=== PATIENT | male | born 1960 | race Caucasian/White ===

== ENCOUNTER 2016-11-26 19:23 | Emergency (ER) | payer OTHER ==
[~2016-11-26] VITALS: Ht 193 cm; Wt 128.2 kg
[2016-11-26 19:26] VITALS: TEMP 98.4
[2016-11-26] MEDS ORDERED: AMOXICILLIN 8751 TAB PO (20:21)
[2016-11-26 20:41] VITALS: BP 145/93; PULSE 94
[2016-11-26] MEDS ORDERED: RT SPIRIVA18 MCG IH (20:43)
[2016-11-26] MEDS ORDERED: PROAIR HFA0.09 MG/AC IH (20:44)
[2016-11-26] MEDS ORDERED: ROBAXIN 50500 MG/TAB PO (20:44)
[2016-11-26] MEDS ORDERED: MOTRIN 600600 MG/TAB PO (20:44)
[2016-11-26] MEDS ORDERED: DYAZIDE 25 MG-31 CAP PO (20:45)
== END 2016-11-26 20:45 | disposition home or self-care (01) ==
LOC: COL.ER 19:23
DX: J01.90 Acute sinusitis, unspecified (principal); J44.9 Chronic obstructive pulmonary disease, unspecified; I10 Essential (primary) hypertension; F17.210 Nicotine dependence, cigarettes, uncomplicated; Z87.09 Personal history of other diseases of the respiratory system; Z99.81 Dependence on supplemental oxygen

== ENCOUNTER 2023-05-16 00:30 | Observation (INO) | payer OTHER ==
[~2023-05-16] VITALS: Ht 10.2 cm; Wt 114.4 kg
[~2023-05-16 00:30] MED LIST: 00186-0370-20 IH; AMBIEN 10MG10 MG PO; AMOXICILLIN 8751 TAB PO; B-121000 MCG PO; BREZTRI AEROS10.7 GM IH; DYAZIDE 25 MG-31 CAP PO; FLONASE NASAL S16 GM NS; K-DUR20 MEQ PO; MEVACOR 20M20 MG/TAB PO; MOTRIN 200200 MG/TAB PO; PRILOSEC 20MG20 MG PO; PROAIR HFA0.09 MG/AC IH; PROMACTA50 MG PO; ROBAXIN 50500 MG/TAB PO; RT ADVAIR 228 DISKUS IH; RT SPIRIVA18 MCG IH; SINEMET 25/101 UDTAB PO; SINGULAIR 110 MG/TAB PO; TEMOVATE0.05% TP; VIAGRA50 M1 PO; VITAMIN C500 MG PO; VITAMIN D250 MCG PO; ZYRTEC 10MG10 MG PO
[2023-05-16 00:50] LABS: BASO % 0.3 % (0.0-2.0); EOS # 0.1 K/mm3 (0.0-0.7); EOS % 0.7 % (0.0-4.0); GRAN # 6.2 K/mm3 (1.4-6.5); GRAN % 85.9 % (42.2-75.2); HEMATOCRIT 38.7 % (42.0-52.0); LYMPH # 0.4 K/mm3 (1.2-3.4); LYMPH % 5.3 % (20.0-51.0); MEAN CELL VOLUME 85 fl (80.0-100.0); MEAN CORPUSCULAR HEMOGLOBIN 29 pg (27-31); MEAN CORPUSCULAR HGB CONC 34 g/dl (33.0-37.0); MEAN PLATELET VOLUME 10.7 fl (7.4-10.4); MONO # 0.5 K/mm3 (0.1-0.6); MONO % 7.5 % (1.7-9.3); PLATELET COUNT 194 K/mm3 (130-400); RED BLOOD COUNT 4.54 M/mm3 (4.20-5.60); REDCELL DISTRIBUTION WIDTH-CV 14.9 % (11.5-14.5)
[2023-05-16 01:08] LABS: ALANINE AMINOTRANSFERASE 6 U/L (0-55); ALBUMIN 3.4 gm/dL (3.4-4.8); ALKALINE PHOSPHATASE 78 U/L (40-150); ANION GAP 12 mmol/L (7-16); AST,SGOT 29 U/L (5-34); BILIRUBIN,TOTAL 0.6 mg/dL (0.2-1.2); BLOOD UREA NITROGEN 9 mg/dL (8-26); C-REACTIVE PROTEIN 0.47 mg/dL (0.00-0.50); CALCIUM 8.8 mg/dL (8.4-10.2); CARBON DIOXIDE 26 mmol/L (23-31); CHLORIDE 95 mmol/L (98-107); CREATININE, serum 0.81 mg/dL (0.72-1.25); GLUCOSE 100 mg/dL (70-99); MAGNESIUM 1.1 mg/dL (1.6-2.6); POTASSIUM 4.5 mmol/L (3.5-4.5); SODIUM 133 mmol/L (136-145); TOTAL PROTEIN 7.4 gm/dL (6.2-8.1)
[2023-05-16 01:23] LABS: ALCOHOL(ethanol),MEDICAL < 10 mg/dL (0-10)
[2023-05-16 01:28] LABS: THYROID STIMULATING HORMONE 1.889 uIU/mL (0.350-4.940)
[2023-05-16 01:34] LABS: TROPONIN-I < 0.010 ng/mL (0.00-0.033)
[2023-05-16] MEDS ORDERED: Magnesium Sulfate 8% 50 ML IV ONE (01:45)
[2023-05-16 02:44] LABS: COLLECTION METHOD CLEAN CATCH
[2023-05-16 02:56] LABS: URINE COLOR Yellow (YELLOW)
[2023-05-16 02:57] LABS: SQUAMOUS EPITHELIAL 0-2 /hpf (0-10); URINE APPEARANCE Clear (CLEAR/HAZY); URINE BACTERIA Rare /hpf (NONE SEEN); URINE BLOOD Negative (NEGATIVE); URINE GLUCOSE Negative (NEGATIVE); URINE KETONE TRACE (NEGATIVE); URINE NITRATE Negative (NEGATIVE); URINE PROTEIN(semi-quant) Negative (NEGATIVE); URINE RBC 0-2 /hpf (0-2); URINE UROBILINOGEN 0.2 E.U/dL (0.2-1.0)
--- NOTE | 2023-05-16 03:14 | NUR ---
REPORT RECIEVED FROM PATRICK KRISHNAMURTHY FROM ER.
[2023-05-16] MEDS ORDERED: Acetaminophen 500 MG TAB PO PRN (03:15)
[2023-05-16] MEDS ORDERED: Ondansetron 4 MG/2 ML VIAL IV PRN (03:15)
[2023-05-16] MEDS ORDERED: NS 1,000 ML IV SCH (03:15)
[2023-05-16 03:40] VITALS: BP 159/80; PULSE 98; TEMP 98.2
--- NOTE | 2023-05-16 03:40 | NUR ---
MALE PATIENT ARRIVED TO ROOM #354 VIA STRETCHER FROM ER. PATIENT ASSISTED TO BED WITH STAND BY ASSIST. PATIENT GAIT STEADY. PATIENT HAS ESSENTAL TREMORS NOTED FROM PARKINSONS DISEASE. MAGNESIUM INFUSING INTO RIGHT WRIST WITH NO COMPLICATIONS NOTED. INITAL INTERVIEW AND ASSESSMENT COMPLTED AT THIS TIME. PATIENT TOLERATED WELL. PATIENT HELPED UP TO USE URINAL AND VOIDED CLEAR YELLOW URINE. PATINET GIVE ICE, WATER, AND SPRITE. ALL NEEDS MET. BED IN LOW POSITION WITH WHEELS LOCKED WITH RAILS UP X3 AND CALL LIGHT WITHIN REACH.
[2023-05-16] MEDS ORDERED: Albuterol 0.042% Neb Soln 1.25 MG/3 ML UD IH PRN (03:45)
[2023-05-16] MEDS ORDERED: Budesonide Neb Susp 0.5 MG/2 ML AMP IH SCH (07:00)
[2023-05-16] MEDS ORDERED: Omeprazole 20 MG **** subs to Pantoprazole 40 MG PO SCH (07:00)
[2023-05-16] MEDS ORDERED: Formoterol 20 MCG,Budesonide 0.5 MG IH SCH (07:00)
[2023-05-16 07:24] VITALS: BP 159/87; PULSE 93; TEMP 98
[2023-05-16 07:33] LABS: BASO % 0.3 % (0.0-2.0); EOS % 0.3 % (0.0-4.0); GRAN # 5.3 K/mm3 (1.4-6.5); GRAN % 85.6 % (42.2-75.2); HEMATOCRIT 38.1 % (42.0-52.0); HEMOGLOBIN 13.2 g/dl (13.5-18.0); LYMPH # 0.5 K/mm3 (1.2-3.4); LYMPH % 7.2 % (20.0-51.0); MEAN CELL VOLUME 84 fl (80.0-100.0); MEAN CORPUSCULAR HEMOGLOBIN 29 pg (27-31); MEAN CORPUSCULAR HGB CONC 35 g/dl (33.0-37.0); MEAN PLATELET VOLUME 11.5 fl (7.4-10.4); MONO # 0.4 K/mm3 (0.1-0.6); MONO % 6.4 % (1.7-9.3); PLATELET COUNT 182 K/mm3 (130-400); RED BLOOD COUNT 4.56 M/mm3 (4.20-5.60); REDCELL DISTRIBUTION WIDTH-CV 14.8 % (11.5-14.5)
[2023-05-16 07:46] LABS: CALCIUM 8.8 mg/dL (8.4-10.2); CREATININE, serum 0.82 mg/dL (0.72-1.25); MAGNESIUM 2.2 mg/dL (1.6-2.6); PHOSPHOROUS 3.9 mg/dL (2.3-4.7); POTASSIUM 4.1 mmol/L (3.5-4.5)
[2023-05-16] MEDS ORDERED: Umeclidinium/Vilanterol 62.5-25 MCG INHALATION/INHALER IH SCH (09:00)
[2023-05-16] MEDS ORDERED: Cetirizine 10 MG TAB PO SCH (09:00)
[2023-05-16] MEDS ORDERED: Budesonide/Glycopyrrolate/Formoterol **** subs to Budesonide + Umeclid/Vilant IH SCH (09:00)
[2023-05-16] MEDS ORDERED: Fluticasone Nasal 50 MCG/Spray 16 GM BOTTLE NS SCH (09:00)
--- NOTE | 2023-05-16 09:15 | NUR ---
PT LAYING IN BED UPON ENTERING. ASSESSMENT DONE, MEDS GIVEN. PT DENIES NEED FOR FLONASE AT THIS TIME. PT DENIES PAIN OR SHORTNESS OF BREATH AT THIS TIME. IV TO RIGHT WRIST HAS NS RUNNING AT 100MLS/HR PER ORDER, NO DISCOMFORT OR COMPLICATIONS NOTED. PTS BILATERAL LOWER EXTREMITIES HAVE BROWN DISCOLORATION NOTED AND EDEMA +1. UPPER LOBES CLEAR AND BASES DIMINISHED DURING ASSESSMENT. PT DENIES NEEDS AT THIS TIME AND STATES THAT HE WILL ORDER BREAKFAST SOON. BED IN LOWEST POSITION, CALL LIGHT IN REACH.
[2023-05-16] MEDS ORDERED: Magnesium Oxide 400 MG TAB PO SCH (09:57)
[2023-05-16] MEDS ORDERED: MAG-OX 400400 MG/TAB PO (10:05)
--- NOTE | 2023-05-16 10:33 | NUR ---
SW Student faxed outpatient PT referral to [facility] (fax#[phone]).
--- NOTE | 2023-05-16 10:43 | NUR ---
metal casting trades worker met with pt to complete discharge planning as pt is set to discharge today. Pt provided he lives in [place]. He sees a PCP at the [facility] and obtains medications from there too. Pt reports his son, Tod [phone] as his contact. He is independent with ADLS and uses supplemental oxygen, cane, and a CPAP. SW went over the PT reccomendation for Outpatient PT. Pt was agreeable to this. SW went over therapy centers in the area and pt [facility] LEO advised she has to submit a RFS with the [place]. Pt verbalized understanding. SW emailed RFS to [facility] for Outpaient PT services. Discharge Plan: Home with OP PT
--- NOTE | 2023-05-16 11:05 | NUR ---
IV REMOVED. PT GIVEN DISCHARGE INSTRUCTIONS WITH FOLLOW UP APPTS AND MEDICATIONS, PT VERBALIZED UNDERSTANDING. PT DENIES NEEDS AND IS CHANGING INTO PERSONAL CLOTHES AT THIS TIME TIME. BELONGINGS GATHERED
--- NOTE | 2023-05-16 11:09 | NUR ---
Initial visit; Patient thanked [employer] for stopping and inquiring how he is today. Patient says he is doing well and appreciates Manager [employer] checking on him.
--- NOTE | 2023-05-16 11:09 | NUR ---
PT ESCORTED TO PERSONAL VEHICLE VIA WHEELCHAIR BY TONY STEWART.
--- NOTE | 2023-05-16 13:51 | NUR ---
LEO Student faxed discharge orders to [facility] (fax#[phone]).
[2023-05-16] MEDS ORDERED: Montelukast 10 MG TAB PO SCH (21:00)
== END 2023-05-16 11:09 | disposition home or self-care (01) ==
LOC: COL.ER 00:30 → MEDICAL 02:34 → EDBEDREQ 02:40 → MEDICAL 11:09
PROVIDERS: Emergency Medicine; ADMIT Internal Medicine
DX: R53.1 Weakness (principal); G20.A1 Parkinson's disease without dyskinesia, without mention of fluctuations; E83.42 Hypomagnesemia; F17.290 Nicotine dependence, other tobacco product, uncomplicated
CPT/HCPCS: G0378; J1650; J3475; J7030

== ENCOUNTER 2023-05-20 12:39 | Outpatient (RCR) | payer OTHER ==
[~2023-05-20 12:39] MED LIST changes: +MAG-OX 400400 MG/TAB PO
== END 2023-05-20 13:58 | disposition home or self-care (01) ==
LOC: MKS.ESL.PT 12:39
DX: G20.A1 Parkinson's disease without dyskinesia, without mention of fluctuations (principal)